=== PATIENT | female | born 1985 | race African-American/Black ===

== ENCOUNTER 2016-06-02 16:18 | Emergency (ER) | payer SELFPAY ==
[~2016-06-02] VITALS: Ht 170.2 cm; Wt 102.1 kg
[2016-06-02 16:20] VITALS: BP 126/70
--- NOTE | 2016-06-02 16:56 | PHYS DOC ---
General Chief Complaint: VAGINAL BLEEDING Stated Complaint: VAGINAL BLEEDING Time Seen by MD: 16:52 Source: patient Exam Limitations: no limitations Problems: History of Present Illness Initial Comments Pt is 30/F to ED c/o heavy menses. Pt states she had two mos ago, normal / healthy child. Pt comes to ED today c/o heavy menses, states she finished her second menses two weeks ago now on day #5 of third. "My normal cycle is 3 days, never this long or heavy." Reports 4 pads/day, no abnormal pain/cramping, no fever/chills , no malodorous or nonbloody discharge, no dyspareunia. Pt states she feels tired today, concerned about possible anemia. No prearrival treatment. Pt notifies RN she thinks she could be , requests urine test. Timing/Duration: intermittent Severity: mild Modifying Factors: improves with other Associated Symptoms: malaise, other Allergies: Coded Allergies: Penicillins (Verified Allergy, Unknown, 06/02/16) iodine (Verified Allergy, Unknown, 06/02/16) Past Medical History Medical History: asthma Surgical History: tonsillectomy Social History Smoker: non-smoker Alcohol: none Drugs: none Review of Systems Constitutional: denies chills, denies diaphoresis, denies fever, malaise EENTM: denies eye pain, denies blurred vision, denies ear pain, denies throat pain Respiratory: denies cough, denies shortness of breath, denies wheezing Cardiovascular: denies chest pain, denies palpitations, denies syncope Gastrointestinal: denies see HPI, denies diarrhea, denies nausea, denies vomiting Genitourinary: see HPIdenies dysuria, denies frequency, denies hematuria Musculoskeletal: denies back pain, denies joint swelling, denies neck pain Psychiatric/Neurological: denies headache, denies numbness, denies paresthesia Hematologic/Lymphatic: denies blood clots, denies easy bleeding, denies easy bruising Physical Exam General Appearance: no apparent distress, obese Ear, Nose, Throat: hearing grossly normal, normal ENT inspection Neck: non-tender, supple Respiratory: normal breath sounds, no respiratory distress Cardiovascular: normal peripheral pulses, regular rate, rhythm Gastrointestinal: non tender, soft Back: no CVA tenderness, no vertebral tenderness Extremities: non-tender, normal inspection Neurologic/Psychiatric: surgical manager II-XII nml as tested, no motor/sensory deficits, alert, normal mood/affect, oriented x 3 Skin: normal color, warm/dry Orders, Labs, Meds BMP unremarkable, Hb 12.6, Hct 37 Departure Time of Disposition: 17:19 Disposition: 01 HOME, SELF-CARE Diagnosis: menorrhagia Condition: GOOD Patient Instructions: Menorrhagia, [id number] Additional Instructions: As discussed, your menses can be heavy and irregular for months after delivery. Your blood test screening for anemia was normal, hemoglobin 12.6 and hematocrit 37. The requested urine test negative. Continue current treatment. OTC ibuprofen 800mg every 8 hours as needed. Follow up with your executive sales manager, call tomorrow to schedule next available appointment. Return to ED with new or changing symptoms. GER PAULSON DO Jun 02, 2016 16:56
[2016-06-02 17:01] LABS: HEMOGLOBIN ISTAT 12.6 gm/dL; POTASSIUM ISTAT 3.6 mmol/L (3.5-5.0)
[2016-06-02 17:16] LABS: U PREG PATIENT NEGATIVE (NEG)
== END 2016-06-02 17:17 | disposition home or self-care (01) ==
LOC: ER 16:18
DX: N92.0 Excessive and frequent menstruation with regular cycle (principal); J45.909 Unspecified asthma, uncomplicated; Z88.0 Allergy status to penicillin; Z91.041 Radiographic dye allergy status
CPT/HCPCS: 80047; 81025; 99283

== ENCOUNTER 2017-12-31 13:33 | Emergency (ER) | payer OTHER ==
[~2017-12-31] VITALS: Ht 170.2 cm; Wt 102.1 kg
[2017-12-31] MEDS ORDERED: HYDROmorphone PF 1 MG/ML DISP.SYRIN ONE (14:01)
[2017-12-31] MEDS ORDERED: ONDANSETRON ODT 4 MG TAB.RAPDIS ONE (14:01)
--- NOTE | 2017-12-31 14:14 | RAD ---
Left hand, 3 views, 12/31/2017: HISTORY: Finger amputation There has been amputation of the tip of the middle finger involving a portion of the terminal tuft of the distal phalanx. No other fracture or dislocation is identified. There are mild degenerative changes at scattered interphalangeal joints. IMPRESSION: Partial amputation of the terminal tuft of the distal phalanx of the middle finger. Electronically signed by: Freddy Cates MD (12/31/2017 2:11 PM) [facility]
[2017-12-31] MEDS ORDERED: ONDANSETRON ODT 4 MG TAB.RAPDIS PO ONE (14:20)
[2017-12-31] MEDS ORDERED: HYDROmorphone PF 1 MG/ML DISP.SYRIN IM ONE (14:20)
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
[2017-12-31] MEDS ORDERED: DIPHTH,PERTUSS(ACELL),TET TOX 0.5 ML DISP.SYRIN. VAX IM ONE (15:00)
[2017-12-31] MEDS: HYDROmorphone PF 1 MG/ML DISP.SYRIN IM ONE ×2 (15:39→15:52)
[2017-12-31 16:43] VITALS: BP 121/79
[2017-12-31] MEDS ORDERED: IV NORMAL SALINE 50ML 50 ML ONE (16:44)
[2017-12-31] MEDS ORDERED: ceFAZolin SODIUM 1 GM VIAL ONE (16:44)
== END 2017-12-31 17:03 | disposition short-term general hospital (02) ==
LOC: ER 13:33
DX: S68.123A Partial traumatic metacarpophalangeal amputation of left middle finger, initial encounter (principal); J45.909 Unspecified asthma, uncomplicated; Z88.0 Allergy status to penicillin; Z91.041 Radiographic dye allergy status; W23.0XXA Caught, crushed, jammed, or pinched between moving objects, initial encounter; Y93.89 Activity, other specified; Y92.89 Other specified places as the place of occurrence of the external cause; Y99.8 Other external cause status
CPT/HCPCS: 73130; 90471; 90715; 96365; 96372; 99285; J0690; J1170; Q0162

== ENCOUNTER 2018-01-05 23:30 | Emergency (ER) | payer OTHER ==
[~2018-01-05] VITALS: Ht 170.2 cm; Wt 108.9 kg
[2018-01-05 23:45] VITALS: BP 140/71
--- NOTE | 2018-01-05 23:50 | ED.ADGEN ---
Past History Past Medical History: Asthma Past Surgical History: Tonsillectomy Alcohol Use: None Drug Use: None Adult General Chief Complaint Chief Complaint " .. I cut off my finger tip on .. and I need it re-dressed and re-check.... " [facility] HPI Patient is a 32 year old female who presents with above hx and complaints amputation of Rt. 3rd finger tip on 12/31. No dressing changes since injury. Current gauze dressing adhered eschar wound. Tip of finger is still very tender. Can flex and extend finger but this is painful. Patient is right-hand dominant. No recent travel or specific ill contacts. No history immunosuppression. Patient accompanied with her sister. Reviewed note from . Review of Systems Review of Systems Constitutional: Denies fever or chills [] Eyes: Denies change in visual acuity, redness, or eye pain [] HENT: Denies nasal congestion or sore throat [] Respiratory: Denies cough or shortness of breath [] Cardiovascular: No additional information not addressed in HPI [] GI: Denies abdominal pain, nausea, vomiting, bloody stools or diarrhea [] : Denies dysuria or hematuria [] Musculoskeletal: Denies back pain or joint pain . Complaints of []distal right third finger amputation. Integument: Denies rash or skin lesions [] Neurologic: Denies headache, focal weakness or sensory changes [] Endocrine: Denies polyuria or polydipsia [] All other systems were reviewed and found to be within normal limits, except as documented in this note. Family History Family History Noncontributory Current Medications Current Medications Current Medications Medications (Trade) Dose Ordered Sig/Susan Start Time Stop Time Status Last Admin Dose Admin Hydrocodone Bitartrate/ Ibuprofen (Vicoprofen 7.5-200) 2 tab 1X ONCE 01/06/18 01:00 01/06/18 01:01 01/06/18 00:52 2 TAB Trimethoprim/ Sulfamethoxazole (Bactrim Ds) 1 tab 1X ONCE 01/06/18 01:00 01/06/18 01:01 01/06/18 00:52 1 TAB Allergies Allergies Allergies Coded Allergies Type Severity Reaction Last Updated Verified Penicillins Allergy Unknown 06/02/16 Yes iodine Allergy Unknown 06/02/16 Yes Physical Exam Physical Exam Constitutional: Moderate distress, non-toxic appearance. [] HENT: Normocephalic, atraumatic, bilateral external ears normal, oropharynx moist, no oral exudates, nose normal. [] Eyes: PERRLA, EOMI, conjunctiva normal, no discharge. [] Neck: Normal range of motion, no tenderness, supple, no stridor. [] Cardiovascular:Heart rate regular rhythm, no murmur [] Lungs & Thorax: Bilateral breath sounds equal at apex on auscultation . Did have []few scattered wheezes Abdomen: Bowel sounds normal, soft, no tenderness, no masses, no pulsatile masses. [] Obese Skin: Warm, dry, no erythema, no rash. [] Back: No tenderness, no CVA tenderness. [] Extremities: No tenderness, no cyanosis, no clubbing, ROM intact, no edema. [] Right third finger exam as per history of present illness. Neurologic: Alert and oriented X 3, normal motor function, normal sensory function, no focal deficits noted. [] Psychologic: Affect normal, judgement normal, mood normal. [] Current Patient Data Vital Signs Vital Signs Date Time Temp Pulse Resp B/P (MAP) Pulse Ox O2 Delivery O2 Flow Rate FiO2 01/05/18 23:45 97.4 82 20 98 Room Air EKG EKG [] Radiology/Procedures Radiology/Procedures Comparison of x-ray tonight with prior x-ray shows some increased edema of right third fingertip partial amputation. Course & Med Decision Making Course & Med Decision Making Pertinent Labs and Imaging studies reviewed. (See chart for details) Gauze dressing removed. Use of peroxide and gentle tweezer removal of embedded gauze products. Fingertip area dressed with back to creation and nonstick dressing. Marc taped to ring or fourth finger. Patient to keep finger clean and dry. Remove the dressing immediately it becomes soiled or wet. Have elected to start patient on Bactrim DS twice a day for 7 days. Patient also given a prescription for Vicoprofen. Patient return if any concerns. Must follow-up. Recommended surgical follow-up if no improvement or develops osteomyelitis with hand surgery. Final Impression Final Impression 1. Rt. 3rd finger tip laceration/ amputation and tuff fx.[] Dragon Disclaimer Dragon Disclaimer This electronic medical record was generated, in whole or in part, using a voice recognition dictation system. LEW THOMAS MD Jan 05, 2018 23:50
[2018-01-06] MEDS ORDERED: SULF1TAB24 PO (00:22)
[2018-01-06] MEDS ORDERED: HYDR-1179 PO (00:41)
[2018-01-06] MEDS: SMZ/TMP 800/160MG TABLET. PO ONE (00:52)
[2018-01-06] MEDS: HYDROcodon/IBUPROFEN 7.5/200MG 1 TAB TABLET PO ONE (00:52)
--- NOTE | 2018-01-06 03:16 | RAD ---
Three-view left hand radiographs 01/06/2018 CLINICAL HISTORY: Post amputation of the distal phalanx of the left third finger on 12/31/2017. Severe pain and swelling. PA, lateral and oblique digital radiographs of the left hand were obtained. Comparison study is dated 12/31/2017. The patient is post amputation of the majority of the terminal tuft of the distal phalanx of the left fifth finger. Irregularity of distal soft tissues of the left finger are seen in this region consistent with soft tissue amputation as well. A 3 mm bone fragment is seen adjacent to the lateral aspect of the remaining distal metaphysis of the distal phalanx, unchanged. No acute osseous abnormality is seen. No radiopaque foreign body is noted. Since the previous examination there has been no significant interval change. IMPRESSION: Post amputation of the distal left finger as outlined above. Since the previous examination there has been no significant interval change. Electronically signed by: Babak Carlisle MD (01/06/2018 3:12 AM) [id number]
== END 2018-01-06 01:02 | disposition home or self-care (01) ==
LOC: ER 23:30
DX: S68.122D Partial traumatic metacarpophalangeal amputation of right middle finger, subsequent encounter (principal); J45.909 Unspecified asthma, uncomplicated; Z88.0 Allergy status to penicillin; Z91.041 Radiographic dye allergy status; W26.8XXD Contact with other sharp object(s), not elsewhere classified, subsequent encounter
CPT/HCPCS: 73130; 99283; 99284

== ENCOUNTER 2018-03-19 07:44 | Emergency (ER) | payer OTHER ==
[2018-03-19 07:44] VITALS: BP 128/83
[~2018-03-19 07:44] MED LIST: HYDR-1179 PO; SULF1TAB24 PO
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
[2018-03-19 09:31] LABS: U PREG PATIENT NEGATIVE (NEG)
== END 2018-03-19 09:45 | disposition left against medical advice (07) ==
LOC: ER 07:44
DX: S09.90XA Unspecified injury of head, initial encounter (principal); M54.2 Cervicalgia; R42 Dizziness and giddiness; Z88.0 Allergy status to penicillin; Z91.041 Radiographic dye allergy status; W22.8XXA Striking against or struck by other objects, initial encounter; Y93.H1 Activity, digging, shoveling and raking; Y92.89 Other specified places as the place of occurrence of the external cause; Y99.8 Other external cause status
CPT/HCPCS: 81025; 99282